=== PATIENT | female | born 1995 | race Caucasian/White ===

== ENCOUNTER 2018-06-02 11:15 | Emergency (ER) | payer SELFPAY | END 2018-06-02 13:22 | disposition home or self-care (01) | LOC: ERS 11:15 | DX: S09.90XA Unspecified injury of head, initial encounter (principal); W50.1XXA Accidental kick by another person, initial encounter | CPT/HCPCS: 99283 ==

== ENCOUNTER 2019-03-04 15:26 | Emergency (ER) | payer SELFPAY ==
[2019-03-04] MEDS ORDERED: Ibuprofen 200 MG TAB ONE (16:02)
== END 2019-03-04 17:21 | disposition home or self-care (01) ==
LOC: ERS 15:26
DX: J02.9 Acute pharyngitis, unspecified (principal); J45.909 Unspecified asthma, uncomplicated
CPT/HCPCS: 87081; 87430; 99283

== ENCOUNTER 2019-12-30 13:39 | Emergency (ER) | payer SELFPAY ==
--- NOTE | 2019-12-30 15:20 | CT ---
CT BRAIN WITHOUT CONTRAST: HISTORY: Trauma, headache FINDINGS: No evidence of acute infarct, hemorrhage, midline shift or abnormal extra-axial fluid collections is seen. The ventricular size is appropriate and the basilar cisterns are patent. The bony calvarium is intact. The visualized paranasal sinuses and mastoid air cells are well aerated. IMPRESSION: No CT evidence of acute intracranial process.
== END 2019-12-30 16:00 | disposition home or self-care (01) ==
LOC: ERS 13:39
DX: S09.90XA Unspecified injury of head, initial encounter (principal); J45.909 Unspecified asthma, uncomplicated; Y04.0XXA Assault by unarmed brawl or fight, initial encounter
CPT/HCPCS: 70450